=== PATIENT | male | born 1970 | race Two or more races ===

== ENCOUNTER 2023-04-11 16:29 | Emergency (ER) | payer OTHER ==
[~2023-04-11] VITALS: Ht 175.3 cm; Wt 86.2 kg
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
--- NOTE | 2023-04-11 18:03 | NUR ---
AT BEDSIDE FOR EVAL
[2023-04-11] MEDS ORDERED: HYDROCORTISONE ACETATE 25 MG/SUPP.RECT SUPP.RECT RC ONE ×2 (18:12→18:30)
[2023-04-11] MEDS ORDERED: KETOROLAC TROMETHAMINE INJ 60 MG/2 ML VIAL IM ONE ×2 (18:12→18:30)
[2023-04-11] MEDS ORDERED: HYDR25SU33 RC (18:46)
[2023-04-11] MEDS ORDERED: DOCU-141 PO (18:46)
--- NOTE | 2023-04-11 19:04 | NUR ---
Patient discharged to home in stable condition. Written and verbal after care instructions given. Patient verbalizes understanding of instruction.
[2023-04-11 19:05] VITALS: BP 138/91
== END 2023-04-11 19:05 | disposition home or self-care (01) ==
LOC: ER 16:46
DX: K64.9 Unspecified hemorrhoids (principal)
CPT/HCPCS: 99283; 96372; J1885

== ENCOUNTER 2023-09-18 20:08 | Emergency (ER) | payer OTHER ==
[~2023-09-18] VITALS: Ht 175.3 cm; Wt 83.9 kg
[~2023-09-18 20:08] MED LIST: DOCU-141 PO; HYDR25SU33 RC
[2023-09-18] MEDS ORDERED: KETOROLAC TROMETHAMINE INJ 30 MG/ML VIAL IM ONE (20:30)
[2023-09-18] MEDS ORDERED: KETOROLAC TROMETHAMINE INJ 30 MG/ML VIAL ONE (20:35)
[2023-09-18] MEDS ORDERED: METH1ADH6 TP (21:19)
[2023-09-18] MEDS ORDERED: IBUP-1957 PO (21:19)
[2023-09-18 21:33] VITALS: BP 150/88; TEMP 98.7; O2SAT 100
== END 2023-09-18 21:34 | disposition home or self-care (01) ==
LOC: ER 20:11
DX: R07.81 Pleurodynia (principal); Z60.2 Problems related to living alone; V23.49XA Other motorcycle driver injured in collision with car, pick-up truck or van in traffic accident, initial encounter; Y93.89 Activity, other specified; Y92.488 Other paved roadways as the place of occurrence of the external cause; Y99.8 Other external cause status
CPT/HCPCS: 99283; 71046; 96372; J1885

== ENCOUNTER 2025-08-05 22:23 | Inpatient (IN) | payer OTHER ==
[~2025-08-05] VITALS: Ht 167.6 cm; Wt 77.1 kg
[~2025-08-05 22:23] MED LIST changes: +IBUP-1957 PO; +METH1ADH6 TP
[2025-08-05] MEDS ORDERED: MORPHINE SULFATE INJ 4 MG/ML DISP.SYRIN ONE (23:03)
[2025-08-05] MEDS ORDERED: ONDANSETRON HCL/PF 4 MG/2 ML VIAL ONE (23:03)
[2025-08-05] MEDS: ONDANSETRON HCL/PF 4 MG/2 ML VIAL IVP ONE (23:11)
[2025-08-05] MEDS: IV NS 0.9% 1,000 ML BAG IV ONE (23:11)
[2025-08-05] MEDS: MORPHINE SULFATE INJ 2 MG/ML DISP.SYRIN IV ONE (23:11)
[2025-08-05 23:16] LABS: PLATELET COUNT (AUTO) 258 K/uL (150-450); RED BLOOD CELL COUNT(AUTO) 5.95 MIL/uL (4.5-6.0); RED CELL DISTRIBUTION WIDTH 13.6 % (11.5-15.0); WHITE BLOOD COUNT (AUTO) 12.7 K/uL (4.3-11.0)
[2025-08-05 23:26] LABS: CALCIUM, SERUM 9.6 mg/dL (8.5-10.1); CREATININE 1.2 mg/dL (0.6-1.3); SODIUM SERUM 139 mmol/L (136-145); UREA NITROGEN, BLOOD 17 mg/dL (7-18)
[2025-08-05 23:29] LABS: INR 1.01 (0.91-1.10)
[2025-08-05 23:31] LABS: ASPARTATE AMINOTRANSFERASE 20 U/L (15-37); TOTAL PROTEIN, SERUM 7.9 g/dL (6.4-8.2)
[2025-08-05 23:32] LABS: APPEARANCE,URINE CLEAR (CLEAR); BLOOD, URINE NEGATIVE Ery/uL (NEGATIVE); LEUKOCYTE ESTERASE ,URINE NEGATIVE (NEGATIVE); NITRITE, URINE NEGATIVE (NEGATIVE); UGLUCOSE NEGATIVE (NEGATIVE)
[2025-08-06] MEDS ORDERED: MORPHINE SULFATE INJ 4 MG/ML DISP.SYRIN ONE ×2 (00:43→01:51)
[2025-08-06] MEDS: MORPHINE SULFATE INJ 2 MG/ML DISP.SYRIN IV ONE (01:00)
[2025-08-06] MEDS ORDERED: ONDANSETRON HCL/PF 4 MG/2 ML VIAL IVP PRN (01:30)
[2025-08-06] MEDS ORDERED: Z GUARD REMEDY 4 OZ OINT TP PRN (01:30)
[2025-08-06] MEDS: MORPHINE SULFATE INJ 2 MG/ML DISP.SYRIN IV PRN ×2 (01:55→03:07)
[2025-08-06] MEDS: IV D5W 1,000 ML IV PRN (03:00)
[2025-08-06] MEDS ORDERED: MORPHINE SULFATE INJ 2 MG/ML DISP.SYRIN ONE (03:01)
[2025-08-06] MEDS ORDERED: hydrALAZINE HCL IV 20 MG VIAL IV PRN (03:30)
[2025-08-06] MEDS ORDERED: HYDROMORPHONE 1 MG/1 ML DISP.SYRIN ONE (05:09)
[2025-08-06] MEDS: HYDROMORPHONE 1 MG/1 ML DISP.SYRIN IV PRN ×3 (05:20→11:58)
[2025-08-06] MEDS ORDERED: PANTOPRAZOLE 40 MG VIAL ONE (07:10)
[2025-08-06] MEDS: PANTOPRAZOLE 40 MG VIAL IV SCH (07:13)
[2025-08-06 08:00] VITALS: BP 151/92; TEMP 98.2; O2SAT 99
[2025-08-06] MEDS ORDERED: AMLO-213 PO (08:03)
[2025-08-06 16:00] VITALS: BP 138/82; TEMP 98.6; O2SAT 98
[2025-08-06] MEDS: OXYMETAZOLINE HCL NASAL SPRAY 30 ML BOTTLE NS PRN (16:01)
[2025-08-06 20:00] VITALS: BP 152/94; TEMP 98.4; O2SAT 95
[2025-08-06] MEDS: HYDROMORPHONE INJ 2 MG/ML DISP.SYRIN IV PRN (20:45)
[2025-08-07 06:40] LABS: PLATELET COUNT (AUTO) 236 K/uL (150-450); RED BLOOD CELL COUNT(AUTO) 5.66 MIL/uL (4.5-6.0); RED CELL DISTRIBUTION WIDTH 13.9 % (11.5-15.0); WHITE BLOOD COUNT (AUTO) 7.8 K/uL (4.3-11.0)
[2025-08-07 07:12] LABS: CALCIUM, SERUM 7.5 mg/dL (8.5-10.1); CREATININE 1.0 mg/dL (0.6-1.3); PHOSPHORUS 2.8 mg/dL (2.5-4.9); SODIUM SERUM 138.0 mmol/L (136-145); UREA NITROGEN, BLOOD 14.0 mg/dL (7-18)
[2025-08-07 08:00] VITALS: BP_SYST 118; BP_SYST 152; BP_SYST 153; BP_DIAS 62; BP_DIAS 91; TEMP 97.5; TEMP 98.2; TEMP 98.4; O2SAT 95; O2SAT 96
[2025-08-07] MEDS ORDERED: DIATR MEGLU/DIATRIZOATE SODIUM 120 ML BOTTLE (GASTROGRAPHIN) ONE (09:52)
[2025-08-07 16:00] VITALS: BP 146/85; TEMP 97.9; O2SAT 99
[2025-08-07 20:00] VITALS: BP 153/91; TEMP 97.5; O2SAT 96
[2025-08-08 07:00] VITALS: BP 149/89; TEMP 97.5; O2SAT 94
[2025-08-08 16:00] VITALS: BP 151/93; TEMP 97.9; O2SAT 96
== END 2025-08-08 19:00 | disposition home or self-care (01) | DRG 390 ==
LOC: ER 22:29 → MED 08-06 05:57
PROVIDERS: ADMIT Internal Medicine; ATTEND Internal Medicine
DX: K56.600 Partial intestinal obstruction, unspecified as to cause (principal); I10 Essential (primary) hypertension; D72.829 Elevated white blood cell count, unspecified; E27.8 Other specified disorders of adrenal gland
CPT/HCPCS: 36415; 71045-TC; 74018; 74250-TC; 80048-TC; 80076-TC; 83605-TC; 83690-TC; 83735-TC; 84100-TC; 84484-TC; 85025-TC; 85730-TC; A4223; G0378; J1171; J2270; J2405; J2470; J7042; J7070; Q9963